=== PATIENT | male | born 1975 | race Caucasian/White ===

== ENCOUNTER 2021-03-17 10:32 | Emergency (ER) | payer OTHER ==
[~2021-03-17 10:32] MED LIST: MEDROL 4MG DOSEP4 MG PO; NORCO 5-325 TA1 EACH PO; ROBAXIN750 MG PO
[2021-03-17] MEDS ORDERED: ULTRAM50 MG PO (14:32)
== END 2021-03-17 15:00 | disposition home or self-care (01) ==
LOC: FER 10:32
DX: G56.21 Lesion of ulnar nerve, right upper limb (principal); I10 Essential (primary) hypertension
CPT/HCPCS: 73110; 73130; 96372; J1100; J1885